=== PATIENT | female | born 1965 | race African-American/Black ===

== ENCOUNTER 2019-03-07 13:40 | Emergency (ER) | payer OTHER ==
[~2019-03-07] VITALS: Ht 165.1 cm; Wt 84.0 kg
[2019-03-07] MEDS ORDERED: ASPIRIN 325MG TABLET PO ONE (14:15)
[2019-03-07 14:50] LABS: BASOPHILS % 0.8 % (0.0-2.0); EOSINOPHILS % 3.2 % (0.0-5.0); HEMATOCRIT. 36.7 % (36.0-48.0); HEMOGLOBIN. 12.4 g/dL (12.0-16.0); LYMPHOCYTES % 42.5 % (20.0-50.0); MEAN CORPUSCULAR HEMOGLOBIN 32.1 pg (28.0-32.0); MEAN CORPUSCULAR VOLUME 94.9 fL (81.0-99.0); MEAN PLATELET VOLUME 7.5 fl (7.4-10.4); MONOCYTES % 10.2 % (2.0-8.0); NEUTROPHILS % 43.3 % (40.0-76.0); PLATELET 284 x1000/uL (130-400); RED BLOOD CELL COUNT 3.86 mill/uL (4.2-5.4); RED CELL DISTRIBUTION WIDTH 14.7 % (11.6-14.6)
[2019-03-07 14:54] LABS: CHLORIDE 103 mEq/L (98-107)
[2019-03-07] MEDS ORDERED: IOHEXOL-350 100 ML BOTTLE ONE (16:07)
[2019-03-07] MEDS ORDERED: NITROGLYCERIN OINT 1GM/INCH UDPKT TD ONE (17:00)
[2019-03-07 18:11] VITALS: BP 138/90
== END 2019-03-07 18:22 | disposition short-term general hospital (02) ==
LOC: ER 13:40 → CANBEDREQ 19:25
DX: R07.89 Other chest pain (principal); E03.9 Hypothyroidism, unspecified; Z51.11 Encounter for antineoplastic chemotherapy; Z90.12 Acquired absence of left breast and nipple; Z90.89 Acquired absence of other organs; Z88.0 Allergy status to penicillin; Z85.3 Personal history of malignant neoplasm of breast
CPT/HCPCS: 36415; 71045; 71275; 80053; 83880; 84484; 85025; 93005; 99285; Q9967